=== PATIENT | male | born 1940 | race Caucasian/White ===

== ENCOUNTER → 2019-01-29 | Outpatient (REF) | payer MEDICARE, MEDICAID ==
[~2019-01-29] MED LIST: ATOR40TA75 PO; ECOT81TA5 PO; GLUC500C37 PO; IRON325T2 PO; METF500T13 PO; NEUR600T PO; NO ITAB PO
== END ==
LOC: M SMT 16:47
PROVIDERS: ATTEND Urology
DX: R33.8 Other retention of urine (principal)
CPT/HCPCS: 51701; 87088; 87186; G0463

== ENCOUNTER → 2019-02-04 | Outpatient (CLI) | payer MEDICARE ==
--- NOTE | 2019-02-04 14:25 | REP ---
PROSTATE SONOGRAPHY: HISTORY: Benign prostatic hypertrophy. SONOGRAPHIC FINDINGS: Trans rectal prostate sonography demonstrates unremarkable seminal vesicles. Prostate gland is heterogeneously enlarged with calcifications and cystic changes noted. Glandular dimensions are measured at 3.9 x 2.3 x 5.0 cm with a calculated glandular volume of 23.5 mL. A Nichole catheter is noted. No suspicious peripheral zone lesion is seen. IMPRESSION: Benign prostatic hypertrophy changes. Electronically Signed by Joe Barry MD 02/04/2019 04:47 P
== END ==
LOC: M RAD 11:32
PROVIDERS: ATTEND Urology
DX: N40.1 Benign prostatic hyperplasia with lower urinary tract symptoms (principal)

== ENCOUNTER → 2019-02-15 | Outpatient (REF) | payer MEDICARE ==
[2019-02-15 19:56] LABS: BASO # 0.1 10^3/uL (0.0-0.2); BASO % 0.6 % (0.0-1.0); EOS # 0.3 10^3/uL (0.0-0.5); EOS % 3.1 % (0.0-3.0); HEMATOCRIT 40.2 % (42.0-52.0); HEMOGLOBIN 12.6 g/dl (13.5-17.5); LYMPH # 1.6 10^3/uL (1.5-5.0); LYMPH % 18.2 % (24.0-44.0); MEAN CORPUSCULAR HEMOGLOBIN 27.6 pg (27.0-33.0); MEAN CORPUSCULAR HGB CONC 31.3 g/dl (32.0-36.5); MEAN CORPUSCULAR VOLUME 88.2 fl (80.0-96.0); MONO # 0.6 10^3/uL (0.0-0.8); MONO % 6.9 % (0.0-5.0); NEUTROPHILS # 6.3 10^3/uL (1.5-8.5); NEUTROPHILS % 70.8 % (36.0-66.0); PLATELET COUNT, AUTOMATED 273 10^3/uL (150-450); RED BLOOD COUNT 4.56 10^6/uL (4.30-6.10); WHITE BLOOD COUNT 8.9 10^3/uL (4.0-10.0)
[2019-02-15 19:58] LABS: ALBUMIN 3.7 GM/DL (3.2-5.2); ALT/SGPT 18 U/L (12-78); BILIRUBIN,TOTAL 0.7 MG/DL (0.2-1.0); BLOOD UREA NITROGEN 17 MG/DL (7-18); CALCIUM LEVEL 9.6 MG/DL (8.8-10.2); CARBON DIOXIDE LEVEL 28 MEQ/L (21-32); CHLORIDE LEVEL 110 MEQ/L (98-107); CHOLESTEROL LEVEL 161 MG/DL (<200); CHOLESTEROL RISK RATIO 3.425 (<5); CREATININE FOR GFR 0.93 MG/DL (0.70-1.30); GLOMERULAR FILTRATION RATE > 60.0 (>42); GLUCOSE, FASTING 108 MG/DL (70-100); HDL CHOLESTEROL 47 MG/DL (>40); LDL CHOLESTEROL 86 MG/DL (<100); NON-HDL-C 114 MG/DL; POTASSIUM SERUM 3.8 MEQ/L (3.5-5.1); SODIUM LEVEL 146 MEQ/L (136-145); TOTAL PROTEIN 6.8 GM/DL (6.4-8.2); TRIGLYCERIDES LEVEL 138 MG/DL (<150)
== END ==
LOC: M LAB REF 18:43
PROVIDERS: ATTEND Family Medicine
DX: Z00.00 Encounter for general adult medical examination without abnormal findings (principal); D64.9 Anemia, unspecified; E11.9 Type 2 diabetes mellitus without complications; R63.4 Abnormal weight loss; N13.9 Obstructive and reflux uropathy, unspecified; C79.2 Secondary malignant neoplasm of skin; M48.00 Spinal stenosis, site unspecified; D36.9 Benign neoplasm, unspecified site; M16.11 Unilateral primary osteoarthritis, right hip; I10 Essential (primary) hypertension

== ENCOUNTER → 2019-03-19 | Outpatient (REF) | payer MEDICARE | LOC: M SMT 17:10 | PROVIDERS: ATTEND Urology | DX: R33.9 Retention of urine, unspecified (principal) ==

== ENCOUNTER 2019-03-31 08:57 | Day surgery (SDC) | payer MEDICARE ==
[~2019-03-31] VITALS: Ht 177.8 cm; Wt 92.1 kg
[~2019-03-31 08:57] MED LIST changes: +GENTAMICIN 100 MG in IV 1 EA IV ONE; +LR 1,000 ML IV ONE
[2019-03-31] MEDS ORDERED: LIDOCAINE 2% INJ 100 MG/5 ML SDV (FOR ANES.) As Ordered ONE (10:39)
[2019-03-31] MEDS ORDERED: PROPOFOL 200 MG/20 ML VIAL As Ordered ONE (10:39)
[2019-03-31] MEDS ORDERED: MIDAZOLAM INJ 2 MG/2 ML VIAL (J2250) As Ordered ONE (10:40)
[2019-03-31] MEDS ORDERED: ONDANSETRON 4MG/2ML VIAL (J2405) As Ordered ONE ×2 (10:40→14:12)
[2019-03-31] MEDS ORDERED: dexameTHASONE 4 MG/ML 1ML VIAL (J1100) As Ordered ONE (10:40)
[2019-03-31] MEDS ORDERED: fentaNYL 100 MCG/2 ML INJECTION (J3010) As Ordered ONE ×2 (10:41→13:09)
[2019-03-31] MEDS ORDERED: PHENYLephrine HCL 500 MCG/5 ML (100MCG/ML) SYRINGE (J2370) As Ordered ONE (11:59)
[2019-03-31] MEDS ORDERED: ACETAMINOPHEN 1000MG 100ML IV BTL (OFIRMEV) (J0131 PER 10MG) As Ordered ONE (12:03)
[2019-03-31] MEDS ORDERED: FUROSEMIDE 100 MG/10 ML VIAL (J1940) As Ordered ONE (13:28)
[2019-03-31] MEDS ORDERED: ONDANSETRON 4MG/2ML VIAL (J2405) IV PRN (14:00)
[2019-03-31] MEDS: PERCOCET 5MG/325MG TAB PO PRN ×2 (14:40→15:14)
[2019-03-31] MEDS ORDERED: fentaNYL 100 MCG/2 ML INJECTION (J3010) IV PRN (15:00)
[2019-03-31] MEDS ORDERED: HYDROMORPHONE HCL 0.5 MG/ 0.5 ML SYRINGE (J1170 PER 1) IV PRN (15:00)
[2019-03-31] MEDS ORDERED: LR 1,000 ML IV SCH (15:00)
[2019-03-31 16:15] VITALS: BP 127/62
--- NOTE | 2019-03-31 18:50 | RO ---
DATE OF PROCEDURE: 03/31/2019 PREPROCEDURE DIAGNOSIS: Benign prostatic hyperplasia. POSTPROCEDURE DIAGNOSIS: Benign prostatic hyperplasia. PROCEDURE: Cystoscopy, Button transurethral electrovaporization of the prostate. SURGEON: Miguel Barone MD PRODUCTION WELDER: None. ANESTHESIA: General. OPERATIVE INDICATIONS: This is a 78-year-old male with benign prostatic hyperplasia with urinary retention brought to the operating room today for treatment. DESCRIPTION OF PROCEDURE: The patient was brought to the operating room and general anesthesia was induced. Prophylactic antibiotics were infused. He was then placed in the dorsal lithotomy position and prepped and draped in the usual sterile fashion. At this point a resectoscope was inserted into the urethral meatus and advanced into the bladder using a visual obturator. I made note of location of both ureteral orifices. They were not close to the bladder neck. The patient was noted to have bilobar benign prostatic hyperplasia. At this point, I began vaporizing hyperplastic tissue first circumferentially at the bladder neck and then on both lobes of disease. I kept doing this until there was a clear channel established. Throughout the procedure, I made sure not to vaporize too close to the ureteral orifices or distal to verumontanum. Once there was a clear channel established, hemostasis was obtained using a coagulation current. Once satisfied with hemostasis, the Button resectoscope was removed and an #18-English Nichole catheter was inserted into the bladder. The balloon was filled with 15 mL of sterile water, the catheter was connected to gravity drainage, and this marked the conclusion of the procedure. The patient was then taken out of the dorsal lithotomy position, awakened from anesthesia and transported to the recovery room in stable condition. ESTIMATED BLOOD LOSS: 20 mL INTRAOPERATIVE COMPLICATIONS: None SPECIMENS: None PLAN: The patient will followup in clinic in approximately 1 week for catheter removal and voiding trial.
== END 2019-03-31 16:44 | disposition home or self-care (01) ==
LOC: M SDC 08:57
PROVIDERS: ATTEND Urology
DX: N40.1 Benign prostatic hyperplasia with lower urinary tract symptoms (principal); E11.40 Type 2 diabetes mellitus with diabetic neuropathy, unspecified; K21.9 Gastro-esophageal reflux disease without esophagitis; D64.9 Anemia, unspecified; L40.9 Psoriasis, unspecified; F32.9 Major depressive disorder, single episode, unspecified; Z79.4 Long term (current) use of insulin; Z79.899 Other long term (current) drug therapy
CPT/HCPCS: 52601; J0131; J1100; J1580; J1940; J2250; J2370; J2405; J3010

== ENCOUNTER → 2019-04-14 | Outpatient (REF) | payer MEDICARE ==
[~2019-04-14] MED LIST changes: -GENTAMICIN 100 MG in IV 1 EA IV ONE; -LR 1,000 ML IV ONE
[2019-04-14 18:58] LABS: APPEARANCE, URINE HAZY (CLEAR); BACTERIA, URINE AUTO 1+ (NEGATIVE); BILIRUBIN, URINE AUTO NEGATIVE (NEGATIVE); BLOOD, URINE BLOOD 3+ (NEGATIVE); COLOR, URINE YELLOW (YELLOW); GLUCOSE, URINE (UA) AUTO NEGATIVE (NEGATIVE); KETONE, URINE AUTO NEGATIVE (NEGATIVE); LEUKOCYTE ESTERASE, URINE AUTO 2+ (NEGATIVE); NITRITE, URINE AUTO POSITIVE (NEGATIVE); PROTEIN, URINE AUTO 1+ mg/dL (NEGATIVE); RBC, URINE AUTO TNTC /HPF (0-3); SPECIFIC GRAVITY URINE AUTO 1.016 (1.002-1.035); SQUAMOUS EPITHELIAL CELL UR AU 0 /HPF (0-6); UROBILINOGEN, URINE AUTO 0.2 mg/dL (0.0-2.0); WBC, URINE AUTO 49 /HPF (0-3)
== END ==
LOC: M SMT 17:05
PROVIDERS: ATTEND Nurse Practitioner Family
DX: R33.9 Retention of urine, unspecified (principal)

== ENCOUNTER → 2019-05-11 | Outpatient (REF) | payer MEDICARE, MEDICAID ==
[2019-05-11 19:16] LABS: APPEARANCE, URINE TURBID (CLEAR); BACTERIA, URINE AUTO 2+ (NEGATIVE); BILIRUBIN, URINE AUTO NEGATIVE (NEGATIVE); BLOOD, URINE BLOOD 3+ (NEGATIVE); COLOR, URINE AMBER (YELLOW); GLUCOSE, URINE (UA) AUTO NEGATIVE (NEGATIVE); KETONE, URINE AUTO NEGATIVE (NEGATIVE); LEUKOCYTE ESTERASE, URINE AUTO 2+ (NEGATIVE); MUCUS, URINE SMALL (NEGATIVE); NITRITE, URINE AUTO NEGATIVE (NEGATIVE); PROTEIN, URINE AUTO 2+ mg/dL (NEGATIVE); RBC, URINE AUTO TNTC /HPF (0-3); SPECIFIC GRAVITY URINE AUTO 1.019 (1.002-1.035); SQUAMOUS EPITHELIAL CELL UR AU 0 /HPF (0-6); UROBILINOGEN, URINE AUTO 0.2 mg/dL (0.0-2.0); WBC, URINE AUTO TNTC /HPF (0-3)
== END ==
LOC: M SMT 18:11
PROVIDERS: ATTEND Nurse Practitioner Family
DX: N40.1 Benign prostatic hyperplasia with lower urinary tract symptoms (principal)

== ENCOUNTER → 2019-07-05 | Outpatient (CLI) | payer MEDICARE, MEDICAID ==
--- NOTE | 2019-07-05 18:53 | REP ---
ULTRASOUND URINARY BLADDER: Real-time sonographic evaluation of the urinary bladder was performed. Bladder measures 7.3 x 6.6 x 7.0 cm for a total volume of 220 mL. No mass of calculus is seen. There are bilateral ureteral jets in the urinary bladder with Doppler color evaluation. Postvoid residual is 17 mL, 8% of the original volume. IMPRESSION: Unremarkable bladder ultrasound, postvoid residual is 8%. Electronically Signed by Ron Morejon MD 07/07/2019 01:17 P
--- NOTE | 2019-07-06 08:06 | REP ---
RENAL ULTRASOUND: Real-time sonographic evaluation of the kidneys performed. The kidneys are normal in size and echotexture, right kidney measuring 11.0 x 6.2 x 4.9 cm and left kidney 1.0 x 4.9 x 5.7 cm. There is no hydronephrosis bilaterally. There are multiple bilateral renal cysts. Largest on the right is in the upper pole 3.0 x 2.1 x 2.7 cm. There are two in the mid aspect measuring 2.6 cm maximally and 1.7 cm maximally. In the left upper pole, a cyst measures 1.9 x 2.2 x 2.4 cm. There are two subcentimeter cysts in the mid left kidney. IMPRESSION: No hydronephrosis. Bilateral renal cysts. Electronically Signed by Ron Morejon MD 07/07/2019 01:25 P
== END ==
LOC: M RAD 15:48
PROVIDERS: ATTEND Nurse Practitioner Family
DX: N39.0 Urinary tract infection, site not specified (principal)

== ENCOUNTER → 2019-08-04 | Outpatient (REF) | payer MEDICARE, MEDICAID | LOC: M SMT 16:54 | PROVIDERS: ATTEND Urology | DX: N39.0 Urinary tract infection, site not specified (principal) ==